=== PATIENT | female | born 2005 | race Caucasian/White ===

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

== ENCOUNTER 2025-01-25 13:28 | Day surgery (SDC) | payer BC ==
[~2025-01-25] VITALS: Ht 160 cm; Wt 24.8 kg
[~2025-01-25 13:28] MED LIST changes: +ERYT.5TO RIGHTEYE; +METF500 PO; +[UNRECOGNIZED DRUG - OTHER] PO
[2025-01-25] MEDS ORDERED: Lactated Ringer's 1,000 ML IV ONE ×2 (14:45→15:19)
[2025-01-25] MEDS ORDERED: Lidocaine HCl 4% 5 ML SDA ONE (15:19)
[2025-01-25] MEDS ORDERED: Midazolam HCL 1 MG/ML 5MLVIAL ONE (15:25)
[2025-01-25] MEDS ORDERED: propofoL 50 ML IV ONE (15:25)
[2025-01-25 16:45] VITALS: BP 113/68
== END 2025-01-25 17:06 | disposition home or self-care (01) ==
LOC: ORSCSDS 13:28
PROVIDERS: Internal Medicine Gastroenterology
PROC: 0DB98ZX Excision of Duodenum, Via Natural or Artificial Opening Endoscopic, Diagnostic (ICD-10-PCS; principal; 2025-01-25 15:00)
PROC: 0DBE8ZX Excision of Large Intestine, Via Natural or Artificial Opening Endoscopic, Diagnostic (ICD-10-PCS; principal; 2025-01-25 15:00)
PROC: 0DB78ZX Excision of Stomach, Pylorus, Via Natural or Artificial Opening Endoscopic, Diagnostic (ICD-10-PCS; principal; 2025-01-25 15:00)
DX: R19.7 Diarrhea, unspecified (principal); R11.0 Nausea; K21.9 Gastro-esophageal reflux disease without esophagitis; K29.50 Unspecified chronic gastritis without bleeding; B96.81 Helicobacter pylori [H. pylori] as the cause of diseases classified elsewhere; R14.0 Abdominal distension (gaseous)
CPT/HCPCS: 88305; 88342; J2003; J2250; J2704; J7120

== ENCOUNTER 2025-09-01 06:01 | Emergency (ER) | payer BC ==
[~2025-09-01] VITALS: Ht 157.5 cm; Wt 83.9 kg
[2025-09-01] MEDS ORDERED: NS 500 ML IV SCH (07:10)
[2025-09-01] MEDS ORDERED: Ondansetron HCl 2 MG / ML 2ML Vial IV ONE (07:10)
[2025-09-01] MEDS ORDERED: Ketorolac Tromethamine 30mg Vial IV ONE (07:10)
[2025-09-01 07:33] LABS: BASOPHILS ABSOLUTE AUTO 0.04 K/mm3 (0.00-0.23); BASOPHILS PERCENT AUTO 0 % (0-2); EOSINOPHILS ABSOLUTE AUTO 0.02 K/mm3 (0.00-0.68); EOSINOPHILS PERCENT AUTO 0 % (0-6); Hematocrit 43.2 % (33.0-51.0); Hemoglobin 14.4 g/dL (11.5-16.0); IMMATURE GRAN ABSOLUTE AUTO 0.03 K/mm3 (0.00-0.10); IMMATURE GRAN PERCENT AUTO 0 % (0-1); LYMPHOCYTES ABSOLUTE AUTO 1.37 K/mm3 (0.84-5.20); LYMPHOCYTES PERCENT AUTO 13 % (21-46); MONOCYTES ABSOLUTE AUTO 0.48 K/mm3 (0.16-1.47); MONOCYTES PERCENT AUTO 4 % (4-13); Mean Corpuscular HGB Conc 33.3 g/dL (31.5-36.5); Mean Corpuscular Volume 83 fL (80-100); NEUTROPHILS ABSOLUTE AUTO 8.85 K/mm3 (1.96-9.15); NEUTROPHILS PERCENT AUTO 82 % (41-73); NRBC ABSOLUTE 0.00 K/mm3 (0.00-0.02); NRBC Auto 0.0 /100 WBC (0.0-0.2); Platelet Count 323 K/mm3 (150-400); RDW Coefficient Variation 13.3 % (11.7-14.2); RDW Standard Deviation 40.3 fL (35.1-46.3)
[2025-09-01 07:35] LABS: Source, Urine Clean Catch
[2025-09-01 07:38] LABS: Bilirubin, Urine Neg (Neg); Glucose Qualitative, Urine Neg (Neg); Ketones, Urine Neg (Neg); Leukocyte Esterase, Urine 1+ (Neg); Protein, Urine 2+ (Neg); Specific Gravity, Urine 1.010 (1.003-1.022); Urobilinogen, Urine NORM (Normal)
[2025-09-01 07:44] LABS: Color, Urine Yellow (P-Yellow)
[2025-09-01 07:48] LABS: Alanine Aminotransfer (ALT/SGP 33.0 U/L (12-78); Albumin, Blood 3.4 g/dL (3.4-5.0); Albumin/Globulin Ratio 0.8 (0.8-1.8); Anion Gap 9.0 mmol/L (3-11); Aspartate Aminotrans (AST/SGOT 16.0 U/L (12-37); Bilirubin, Total 0.4 mg/dL (0.1-1.0); Blood Urea Nitrogen 8.0 mg/dL (8-24); CO2, Blood 25.0 mmol/L (21-32); Calcium, Blood 9.1 mg/dL (8.5-10.1); Chloride, Blood 106.0 mmol/L (98-108); Creatinine, Blood 0.7 mg/dL (0.40-1.00); Globulin, Blood 4.4 g/dL (2.2-4.0); Glucose, Blood 113.0 mg/dL (70-99); Potassium, Blood 4.4 mmol/L (3.5-5.5); Sodium, Blood 136.0 mmol/L (136-145); Total Protein, Blood 7.8 g/dL (6.4-8.2)
[2025-09-01 09:30] VITALS: BP 133/74
[2025-09-01] MEDS ORDERED: TAMS.4ER PO (09:38)
[2025-09-01] MEDS ORDERED: ONDA4ODT MM (09:38)
[2025-09-01] MEDS ORDERED: NARCAN4 M1 (09:38)
[2025-09-01] MEDS ORDERED: OXYC5 PO (09:38)
== END 2025-09-01 09:58 | disposition home or self-care (01) ==
LOC: ER 06:01
PROVIDERS: Student in an Organized Health Care Education/Training Program
DX: N13.2 Hydronephrosis with renal and ureteral calculous obstruction (principal); K21.9 Gastro-esophageal reflux disease without esophagitis; Z88.0 Allergy status to penicillin; Z88.1 Allergy status to other antibiotic agents; Z91.030 Bee allergy status; Z88.8 Allergy status to other drugs, medicaments and biological substances
CPT/HCPCS: 74177; 80053; 81001; 83690; 84703; 85025; 87086; 96374-59; 99284-25; J1885; J2405; J7030; Q9967